=== PATIENT | female | born 1945 | race Caucasian/White ===

== ENCOUNTER → 2018-03-18 | Outpatient (CLI) | payer OTHER | LOC: FIMAGING 09:21 | PROVIDERS: ATTEND Family Medicine | DX: R19.09 Other intra-abdominal and pelvic swelling, mass and lump (principal); K76.9 Liver disease, unspecified; R59.9 Enlarged lymph nodes, unspecified ==

== ENCOUNTER 2018-03-22 09:17 | Outpatient (CLI) | payer OTHER ==
[2018-03-22] MEDS ORDERED: NALOXONE HCL 0.4 MG/ML INJ ONE (09:38)
[2018-03-22] MEDS ORDERED: FLUMAZENIL 0.5 MG/5 ML MDV IVP ONE (09:39)
[2018-03-22] MEDS ORDERED: MIDAZOLAM 2 MG/2 ML VIAL ONE ×2 (09:39→12:02)
[2018-03-22] MEDS ORDERED: fentaNYL 100 MCG/2 ML INJ ONE ×2 (09:39→12:02)
[2018-03-22] MEDS ORDERED: LIDOCAINE 1% 300 MG/30 ML SDV ONE (10:00)
--- NOTE | 2018-03-22 10:35 | PDRADPRE ---
Radiology History & Physical Indication for procedure: liver disease Home medications: Diclofenac Sodium 75 mg PO BID 03/19/18 [Last Taken Unknown] Allergies/Adverse Reactions: No Known Allergies Allergy (Unverified 03/19/18 15:14) Mental status: A&Ox3 Heart exam: regular rate and rhythm
--- NOTE | 2018-03-22 10:35 | PDPROPOC ---
Sedation Plan of Care ASA Classification: ASA 2 Mallampati Score: Class 2 Mallampati Reference Image:
[2018-03-22] MEDS ORDERED: MIDAZOLAM 2 MG/2 ML VIAL IVP PRN (10:40)
[2018-03-22] MEDS ORDERED: NALOXONE HCL 0.4 MG/ML INJ IVP PRN (10:40)
[2018-03-22] MEDS ORDERED: FLUMAZENIL 0.5 MG/5 ML MDV IVP PRN (10:40)
[2018-03-22] MEDS ORDERED: fentaNYL 100 MCG/2 ML INJ IVP PRN (10:40)
[2018-03-22 10:41] LABS: INR 0.99 (0.83-1.16)
[2018-03-22] MEDS ORDERED: NS 1,000 ML IV SCH ×2 (10:45)
[2018-03-22 10:47] LABS: PROTIME(PATIENT) 13.3 SEC (12.0-15.0)
[2018-03-22] MEDS ORDERED: oxyCODONE IR 5 MG TAB PO PRN (12:40)
[2018-03-22] MEDS ORDERED: ONDANSETRON 4 MG/2 ML VIAL IVP PRN (12:40)
[2018-03-22 15:14] VITALS: BP 159/97
== END 2018-03-22 15:35 | disposition home or self-care (01) ==
LOC: FIMAGING 09:17
PROVIDERS: ATTEND Family Medicine
PROC: 0FB03ZX Excision of Liver, Percutaneous Approach, Diagnostic (ICD-10-PCS; principal; 2018-03-22 12:48)
DX: C22.9 Malignant neoplasm of liver, not specified as primary or secondary (principal)
CPT/HCPCS: 47000; 76705; 77012; 88307; 88323; 88333; 88341; 88342; 88360; 88365; 99152; 99153; J2250; J3010; J2310